=== PATIENT | male | born 1955 | race Caucasian/White ===

== ENCOUNTER 2017-04-04 11:33 | Inpatient (IN) | payer OTHER, BC ==
[~2017-04-04 11:33] MED LIST: ACETAMINOPHEN 1,000 MG/100 ML BTL IV ONE; CELECOXIB 100 MG CAPSULE PO ONE; FAMOTIDINE 20MG TABLET PO ONE; MECLIZINE 25 MG TABLET PO ONE; METOCLOPRAMIDE 10 MG TABLET PO ONE; VANCOMYCIN HCL 1,000 MG in 0.9 % SODIUM CHLORIDE 250ML 250 ML IVPB ONE
[2017-04-04] MEDS ORDERED: VANCOMYCIN HCL 1 GM VIAL IVPB ONE (12:34)
[2017-04-04] MEDS ORDERED: TRANEXAMIC ACID 1,000 MG/10 ML ML IV ONE (12:34)
[2017-04-04] MEDS ORDERED: BUPIVACAINE 0.75% W/EPI MPF 30ML VIAL IVP ONE (12:34)
[2017-04-04] MEDS ORDERED: BUPIVACAINE LIPOSOME 266MG/20ML VIAL IV ONE (12:34)
[2017-04-04 12:48] LABS: ABO GROUP O; ANTIBODY SCREEN NEGATIVE (NEGATIVE); RH TYPE POSITIVE
[2017-04-04] MEDS ORDERED: TRAMADOL HCL 50 MG TABLET PO PRN ×2 (12:54)
[2017-04-04] MEDS ORDERED: ACETAMINOPHEN W/ CODEINE 300MG/30MG TABLET PO PRN ×2 (12:54)
[2017-04-04] MEDS ORDERED: BISACODYL 10 MG SUPP RC PRN (12:54)
[2017-04-04] MEDS ORDERED: HYDROMORPHONE HCL 2 MG/ML VIAL IM PRN (12:54)
[2017-04-04] MEDS ORDERED: NALOXONE 0.4 MG/1 ML VIAL IVP PRN (12:54)
[2017-04-04] MEDS ORDERED: PROMETHAZINE HCL 12.5 MG in 0.9 % SODIUM CHLORIDE 100ML 50 ML IVPB PRN (12:54)
[2017-04-04] MEDS ORDERED: MORPHINE SULFATE 5 MG/ML PFS IVP PRN ×4 (12:54)
[2017-04-04] MEDS ORDERED: HYDROCODONE/APAP 7.5/325MG TABLET PO PRN (12:54)
[2017-04-04] MEDS ORDERED: ZOLPIDEM TARTRATE 5 MG TABLET PO PRN (12:54)
[2017-04-04] MEDS ORDERED: DIPHENHYDRAMINE HCL 25 MG CAPSULE PO PRN (12:54)
[2017-04-04] MEDS ORDERED: ACETAMINOPHEN W/ CODEINE 300MG/60MG TABLET PO PRN ×2 (12:54)
[2017-04-04] MEDS ORDERED: METOCLOPRAMIDE HCL 10 MG/2 ML VIAL IVP PRN (12:54)
[2017-04-04] MEDS ORDERED: ACETAMINOPHEN 325 MG TAB PO PRN (12:54)
[2017-04-04] MEDS ORDERED: KETOROLAC 30 MG/ML VIAL IVP PRN ×2 (12:54)
[2017-04-04] MEDS ORDERED: HYDROCODONE/APAP 5/325MG TABLET PO PRN ×2 (12:54)
[2017-04-04] MEDS ORDERED: HYDROMORPHONE HCL 1 MG/ML SYRINGE IM PRN (12:54)
[2017-04-04] MEDS ORDERED: MAGNESIUM HYDROXIDE 30 ML UDC PO PRN (12:54)
[2017-04-04] MEDS ORDERED: AL HYDROX/MAG HYDROX 30ML UD PO PRN (12:54)
[2017-04-04] MEDS: ONDANSETRON HCL IV 4 MG/2 ML VIAL IVP PRN ×2 (18:18→22:24)
[2017-04-04] MEDS: PATIENT OWN MED: METFORMIN 1000 MG PO SCH (18:45)
[2017-04-04] MEDS: GLIPIZIDE 5 MG PO SCH (18:45)
[2017-04-04] MEDS: DEXTROSE 5 % AND 0.9 % NACL 1,000 ML IV PRN (20:55)
[2017-04-04] MEDS: VANCOMYCIN HCL 1,000 MG in DEXTROSE 5 % IN WATER 250 ML IVPB SCH ×2 (22:09)
[2017-04-04] MEDS: PATIENT OWN MED: ATORVASTATIN 40 MG PO SCH (22:13)
[2017-04-04] MEDS: FERROUS SULFATE 325 MG TAB PO SCH (22:13)
[2017-04-04] MEDS: DOCUSATE SODIUM 100 MG CAPSULE PO SCH (22:13)
[2017-04-04] MEDS: PATIENT OWN MED: FENOFIBRATE 145 MG PO SCH (22:13)
[2017-04-05] MEDS: ONDANSETRON HCL IV 4 MG/2 ML VIAL IVP PRN ×3 (04:58→17:40)
[2017-04-05] MEDS: DEXTROSE 5 % AND 0.9 % NACL 1,000 ML IV PRN ×2 (05:00→17:36)
[2017-04-05 06:49] LABS: HEMATOCRIT 40.2 % (42.0-52.0); HEMOGLOBIN 12.7 gm/dl (14.0-18.0)
--- NOTE | 2017-04-05 07:08 | RADIOLOGY REPORT ---
EXAM: RIGHT HIP, SINGLE VIEW HISTORY: POSTOP. TECHNIQUE: A single portable AP view of the right hip was obtained. Comparison: None. FINDINGS: Status post right hip arthroplasty. Soft tissue gas and swelling is likely postoperative in nature. No gross complicating process. IMPRESSION: RIGHT HIP ARTHROPLASTY CHANGE. NO GROSS COMPLICATING PROCESS. JOB NUMBER: [id number] MTDD
[2017-04-05] MEDS: GLIPIZIDE 5 MG PO SCH ×2 (10:20→17:56)
[2017-04-05] MEDS: PATIENT OWN MED: METFORMIN 1000 MG PO SCH ×2 (10:20→17:57)
[2017-04-05] MEDS: CELECOXIB 100 MG CAPSULE PO SCH (10:22)
[2017-04-05] MEDS: RIVAROXABAN 10 MG TABLET PO SCH (10:22)
[2017-04-05] MEDS: DOCUSATE SODIUM 100 MG CAPSULE PO SCH ×2 (10:22→21:25)
[2017-04-05] MEDS: FERROUS SULFATE 325 MG TAB PO SCH ×2 (10:23→21:25)
[2017-04-05] MEDS: PATIENT OWN MED: LISINOPRIL 10 MG PO SCH (10:28)
[2017-04-05] MEDS: METOPROLOL 25 MG PO SCH (10:28)
[2017-04-05] MEDS: VANCOMYCIN HCL 1,000 MG in DEXTROSE 5 % IN WATER 250 ML IVPB SCH ×2 (10:50)
--- NOTE | 2017-04-05 10:53 | Rehab Evaluation ---
Patient Information - Patient Information Diagnosis: R hip OA Ordered Treatment: PT Evaluate and Treat Status: Initial Evaluation Surgery: Yes Date of Surgery: 04/04/17 Past Medical/Surgical Hx: PAST MEDICAL/SURGICAL HISTORY Past Surgical History left knee surgery open right knee surgery open appy c scopes heart cath x's 2 PMH - Respiratory Hx Respiratory Disorders No PMH - Cardiovascular Hx Cardiovascular Disorders Yes Hx Abnormal EKG Yes Hx Cardiac Catheterization Yes: 2006 neg. and heart cath 03-30-17 neg has clearance from cardio Hx Hypertension Yes: well controlled on meds Exercise Tolerance Poor Comment: due to hip pain PMH - Neuro Hx Neurological Disorders No PMH - GI Hx Gastrointestinal Disorders Yes PMH - Hx Genitourinary Disorders No PMH - Endocrine Hx Endocrine Disorders Yes Hx Diabetes Yes: onset 10 years ago Hx of NIDDM Yes Comment: checks blood sugars sporadically 120'2 FBS 5.8 A1C PMH - Musculoskeletal Hx Musculoskeletal Disorders Yes Hx Arthritis Yes PMH - Psych Hx Psychiatric Problems No PMH - Hematology/Oncology Hx Hematology/Oncology No Disorders Premorbid Status: Detail (The patient was ambulatory without assistive device and indpendent with all mobility.) Social History: Detail (The patient lives with spouse in a one story home with 2 steps without handrails ( wide enough for walker). The patient's bathroom is equipped with a tub/shower combination with no grab bars and an elevated toilet seat. The patient has a wheeled walker and a standard cane.) Precautions: [place], Other (WBAT on th R LE.) - Time With Patient Total Time Spent With Patient (Min): 30 Treatment Procedures: Detail (Initial Evaluation, gait training) Subjective Information - Subjective Information Per Patient (The patient had complaints of R hip pain level 4 using the 0-10 pain scale.) Objective Data - Mental Status Patient Orientation: Oriented x3 - Visual Perception Appears within normal limits for therapeutic activities - ROM Not within normal limits (The patient's L LE is WFL. The patient's R hip is within THR precautions, knee and ankle are WNL.) - Strength/Tone Not within normal limits (The patient's L LE strength is generally 4+ to 5/5, R LE strength was not tested secondary to s/p surgery, however the patient's strength is functional ( ie: able to lift leg off of bed).) - Bed Mobility Independent (The patient was independent with supine to and from sit transfer.) - Transfers Independent (Independent toilet transfer with use of grab bar and sit to and from stand transfer.) - Balance Balance Sitting: Good Balance Standing: Good - Gait Detail (The patient ambulated with wheeled walker WBAT on the R LE a distance of 60 feet x 1 with supervision for safety only.) Therapy Assessment - Therapy Assessment Detail (The patient experienced increased fatigue after ambulation. The patient was independent with bed mobility and transfers and supervision for safety with ambulation. Feel the patient will progress well with mobility, due to the patient's independence with mobility unsure if patient will require subacute rehabilitation.) Patient Education - Patient Education Teaching Topic: Exercise/Activity (The patient's HEP was reviewed and included: ankle pumps, hip abduction sidelying, heel slides, quad sets, hamstring sets and gluteal sets.), Precautions (The patient required verbal cues to recall THR precautions.) Response: Return Demonstration Teaching Method: Demonstration, Handout Teaching Recipient: Patient Barriers To Learning: Age Related Problem List - Problem List Physical Therapy Problem List: Detail (1) Decreased R LE strength as to be expected following surgery 2) Decreased ability to complete sustained physical activity 3) Non ambulatory on stairs) Goals - Goals Physical Therapy Goals: 1) The patient will be independent with assistive devices on level surfaces WBAT on the R LE. 2) The patient will ambulate on stairs with supervision for safety WBAT on the R LE. 3) The patient will be independent in recalling and following THR precautions Prognosis - Prognosis Good Plan - Plan Physical Therapy Plan: PT 1-2 times a day for gait training, transfer training and review of THR precautions until inpatient goals are met.
[2017-04-05] MEDS ORDERED: BUPIVACAINE 0.75% W/EPI MPF 30ML VIAL IVP ONE (11:07)
[2017-04-05] MEDS ORDERED: TRANEXAMIC ACID 1,000 MG/10 ML ML IV ONE (11:07)
[2017-04-05] MEDS ORDERED: VANCOMYCIN HCL 1 GM VIAL IVPB ONE (11:07)
--- NOTE | 2017-04-05 12:57 | Rehab Evaluation ---
Patient Information - Patient Information Diagnosis: R hip OA Ordered Treatment: OT Evaluate and Treat Status: Initial Evaluation Surgery: Yes (right PRASHANT) Date of Surgery: 04/04/17 Past Medical/Surgical Hx: PAST MEDICAL/SURGICAL HISTORY Past Surgical History left knee surgery open right knee surgery open appy c scopes heart cath x's 2 PMH - Respiratory Hx Respiratory Disorders No PMH - Cardiovascular Hx Cardiovascular Disorders Yes Hx Abnormal EKG Yes Hx Cardiac Catheterization Yes: 2006 neg. and heart cath 03-30-17 neg has clearance from cardio Hx Hypertension Yes: well controlled on meds Exercise Tolerance Poor Comment: due to hip pain PMH - Neuro Hx Neurological Disorders No PMH - GI Hx Gastrointestinal Disorders Yes PMH - Hx Genitourinary Disorders No PMH - Endocrine Hx Endocrine Disorders Yes Hx Diabetes Yes: onset 10 years ago Hx of NIDDM Yes Comment: checks blood sugars sporadically 120'2 FBS 5.8 A1C PMH - Musculoskeletal Hx Musculoskeletal Disorders Yes Hx Arthritis Yes PMH - Psych Hx Psychiatric Problems No PMH - Hematology/Oncology Hx Hematology/Oncology No Disorders Premorbid Status: Detail (Patient lives with spouse in a 1 story house with basement (he will be staying on the main floor temporarily). He has 2 steps at the entrance. He has a tub/shower combination, no handrails and he usually stands to shower. He has an elevated toilet, no grab bars. He is generally responsible for laundry as his has difficulty with the basement stairs. He reports they will be "managing" with laundry after discharge. He has a 2 wheeled walker, shake backboard notcher, shoe horn and sock aid.) Social History: Detail (Supportive spouse.) Precautions: [place], Other (WBAT R LE, PRASHANT precautions.) - Time With Patient Total Time Spent With Patient (Min): 50 Treatment Procedures: Detail (OT eval low complexity) Subjective Information - Subjective Information Per Patient, Other (Spouse present for evaluation) Objective Data - Pain Pain Present: Yes (06/25) - Mental Status Patient Orientation: Oriented x3 - Visual Perception Appears within normal limits for therapeutic activities - ROM Within normal limits ([place] UE AROM WNL) - Strength/Tone Within normal limits ([place] UE strength WNL) - Coordination Appears within normal limits for therapeutic activities - Bed Mobility Independent (Ind with supine to sit.) - Transfers Independent (Ind with sit to stand from raised commode, EOB and raised chair.) - Balance Balance Sitting: Good Balance Standing: Good - Sensation Intact - Gait Detail (Pt ambulating in room with 2 wheeled walker Indly.) - ADL's/IADL's Detail (Pt required verbal cues to recall hip precautions. Pt educated re: LE dressing within hip precautions using adaptive equipment. He was able to demonstrate Ind with donning/doffing shorts and socks after verbal instruction, using shake backboard notcher, sock aid and dressing stick. Pt able to don tennis shoe with shoe horn but required min assist for heel. Briefly reviewed meal prep, pt very concerned about this as his will be at work during the day.) Therapy Assessment - Therapy Assessment Detail (Pt requires min assist for LE dressing (shoes) with use of adaptive equipment, he would benefit from additional OT to address safety with IADLs.) Problem List - Problem List Physical Therapy Problem List: Detail (1) Decreased R LE strength as to be expected following surgery 2) Decreased ability to complete sustained physical activity 3) Non ambulatory on stairs) Occupational Therapy Problem List: Detail (1. Decreased Ind with donning tennis shoes. 2. Decreased Ind with modified IADLs.) Goals - Goals Physical Therapy Goals: 1) The patient will be independent with assistive devices on level surfaces WBAT on the R LE. 2) The patient will ambulate on stairs with supervision for safety WBAT on the R LE. 3) The patient will be independent in recalling and following THR precautions Occupational Therapy Goals: 1. Pt will be safe and Ind with LE dressing using adaptive equipment while maintaining PRASHANT precautions. 2. Pt will verbalize modified techniques for IADLs. Plan - Plan Physical Therapy Plan: PT 1-2 times a day for gait training, transfer training and review of THR precautions until inpatient goals are met. Occupational Therapy Plan: OT 1-2 times for LE dressing and IADLs. Pt may benefit from short IP rehab stay to ensure safety and Ind with return home. Thank you for this referral.
[2017-04-05] MEDS: HYDROCODONE/APAP 7.5/325MG TABLET PO PRN (14:22)
[2017-04-05] MEDS ORDERED: PROPOFOL 10 MG/ML VIAL IV ONE (14:34)
[2017-04-05] MEDS ORDERED: EPHEDRINE SULFATE 50 MG/ML ML IV ONE (14:34)
[2017-04-05] MEDS ORDERED: MIDAZOLAM HCL 2MG/2ML VIAL IV ONE (14:34)
[2017-04-05] MEDS ORDERED: FENTANYL PF 100MCG/2ML VIAL IV ONE (14:34)
[2017-04-05] MEDS ORDERED: HYDROMORPHONE HCL 2 MG/ML VIAL IV ONE (14:34)
[2017-04-05] MEDS ORDERED: DIPHENHYDRAMINE HCL IV 50 MG/ML VIAL IVP ONE (14:34)
[2017-04-05] MEDS ORDERED: LIDOCAINE 2% MDV (20MG/ML) 20ML VIAL IV ONE (14:34)
--- NOTE | 2017-04-05 16:46 | Physical Therapy Tx Note ---
Physical Therapy Tx Note - Treatment Note Tolerated: Good (Patient doing quite well this afternoon. Sitting up in chair and very willing to try stairs and getting into bed on same side that he does at home. Sitting in chair, helped patient put on shorts at knees and patient able to stand and pull them up. Patient able to perform exercises in bed and got into bed independently as well.) Total Time Spent With Patient: 30 Physical Therapy Tx Note: Detail (Patient sitting in chair, nurse detached IV then patient sit to stand independently with FWW. Able to walk with FWW and CGA about 75 feet to stairs and walked down three steps with verbal cues for using correct leg, held rail and folded walker and able to descend safely then turned around using walker and ambulated back up three steps with folded walker and rail using correct leg. Ambulated back to room with only brief rest near room. Patient used bathroom independently then able to move to side of bed that he will use at home and sat on edge of bed with good technique. Patient then was able to scoot back onto bed and pivot into bed with only slight need for assist with hands to get right leg into bed. Patient performed exercises for right hip with good tolerance and technique. Patient also able to repeat hip precautions.) Physical Therapy Problem List: Detail (1) Decreased R LE strength as to be expected following surgery 2) Decreased ability to complete sustained physical activity 3) Non ambulatory on stairs) Physical Therapy Goals: 1) The patient will be independent with assistive devices on level surfaces WBAT on the R LE. 2) The patient will ambulate on stairs with supervision for safety WBAT on the R LE. 3) The patient will be independent in recalling and following THR precautions Prognosis: Good (Patient doing well but wants to go to a rehab facility so will still be here in am and would like to work with PT again for increase in endurance and practice for mobility. He did perform stairs well and exercises but needs a little work on bed mobility.) Physical Therapy Plan: PT 1-2 times a day for gait training, transfer training and review of THR precautions until inpatient goals are met.
[2017-04-05] MEDS: PATIENT OWN MED: FENOFIBRATE 145 MG PO SCH (21:26)
[2017-04-05] MEDS: PATIENT OWN MED: ATORVASTATIN 40 MG PO SCH (21:26)
[2017-04-06] MEDS: HYDROCODONE/APAP 7.5/325MG TABLET PO PRN ×3 (06:40→17:29)
[2017-04-06 06:58] LABS: HEMATOCRIT 36.3 % (42.0-52.0); HEMOGLOBIN 11.2 gm/dl (14.0-18.0)
--- NOTE | 2017-04-06 07:15 | RADIOLOGY REPORT ---
EXAM: PORTABLE CHEST HISTORY: DIFFICULTY IN BREATHING. TECHNIQUE: AP upright view of the chest was performed. FINDINGS: The heart size is normal. No pulmonary vascular congestion. No infiltrate or pleural effusion. The osseous structures are normal. IMPRESSION: NO ACUTE DISEASE PROCESS. JOB NUMBER: [id number] MTDD
[2017-04-06] MEDS: CELECOXIB 100 MG CAPSULE PO SCH (10:54)
[2017-04-06] MEDS: DOCUSATE SODIUM 100 MG CAPSULE PO SCH (10:54)
[2017-04-06] MEDS: RIVAROXABAN 10 MG TABLET PO SCH (10:54)
[2017-04-06] MEDS: FERROUS SULFATE 325 MG TAB PO SCH (10:54)
[2017-04-06] MEDS: PATIENT OWN MED: LISINOPRIL 10 MG PO SCH (10:58)
[2017-04-06] MEDS: GLIPIZIDE 5 MG PO SCH ×2 (10:58→17:30)
[2017-04-06] MEDS: PATIENT OWN MED: METFORMIN 1000 MG PO SCH ×2 (10:58→17:30)
[2017-04-06] MEDS: METOPROLOL 25 MG PO SCH (10:58)
--- NOTE | 2017-04-06 11:46 | Physical Therapy Tx Note ---
Physical Therapy Tx Note - Treatment Note Tolerated: No complications (Pt. was apprehensive about returning to home environment. Pt. reported 5/10 pain at start of tx. Pt. reported he has been communicating with [facility] and may stay at home following inpatient PT and receive home care.) Physical Therapy Tx Note: Detail (Pt. ambulated to and from bathroom twice during tx. He was independent with transfers and bathroom use. Pt. verbalized good understanding of his HEP. Pt. was instructed to perform a car transfer via shower chair demonstration. Pt. appropriately performed the transfer to and from shower chair with belt to assist his operative LE. Pt. demonstrated trunk extension while advancing his operative LE to avoid breaking hip flexion precaution of 90 degrees. Pt. was independent with ambulation using front wheeled walker. Pt. verbalized understanding of his hip precautions. Pt. completed his bed mobility and stair goals last tx session per last PT report.) Physical Therapy Problem List: Detail Physical Therapy Goals: Pt. has met all inpatient PT goals. Prognosis: Good (D/C pt. from inpatient PT.) Physical Therapy Plan: D/C pt. from inpatient PT.
--- NOTE | 2017-04-06 12:48 | Occupational Therapy Tx Note ---
Occupational Therapy Tx Note - Treatment Note Tolerated: Good Total Time Spent With Patient: 15 (ADL) Occupational Therapy Treatment Note: Detail (S: Pt up in chair, feeling ok about dressing with equipment. O: Sit to stand and amb to bathroom with 2 wheeled walker Indly. Pt completed partial sponge bath at sink with assist from spouse. Pt donned shirt and shorts Indly with electronics test engineer. Briefly reviewed tub transfer and car transfer techniques, pt verbalized understanding. PT will address at next visit this morning. Pt feels he will not be wearing tennis shoes at this time therefore this is not an immediate concern. A: Pt is safe and Ind with LE dressing using adaptive equipment while maintaining PRASHANT precautions.) Occupational Therapy Problem List: Detail (1. Decreased Ind with donning tennis shoes. 2. Decreased Ind with modified IADLs.) Occupational Therapy Goals: 1. Pt will be safe and Ind with LE dressing using adaptive equipment while maintaining PRASHANT precautions. 2. Pt will verbalize modified techniques for IADLs. Prognosis: Good Occupational Therapy Plan: OT 1-2 times for LE dressing and IADLs. Pt may benefit from short IP rehab stay to ensure safety and Ind with return home. Thank you for this referral.
--- NOTE | 2017-04-06 13:10 | Operative Note ---
DATE OF SURGERY: 04/04/2017 PREOPERATIVE DIAGNOSIS: End-stage right hip arthrosis. POSTOPERATIVE DIAGNOSIS: End-stage right hip arthrosis. OPERATION: Right total hip arthroplasty. Surgeon: Didier Ferrari MD Anesthesia: Spinal, RADHA Zhu. COMPLICATIONS: None. ESTIMATED BLOOD LOSS: 200 mL OPERATIVE FINDINGS: Severe [id number] hip arthrosis. COMPONENTS PLACED: A 2 g vancomycin Humphries [employer] Nephew Synergy cemented total hip arthroplasty system, size 16 femoral stem high offset with a size 58 mm Reflection 3-hole acetabular shell with 2 screw caps, centrally-threaded screw cap, and a 35-degree hooded highly cross-linked polyethylene liner, an Oxinium 32 plus 0 mm femoral head component. Indication: This is a 61-year-old morbidly obese male who has had persistent pain and dysfunction in his hip for several years. He has failed nonoperative treatment. He has been trying to lose some weight and I recommended he continue to do so. He is at higher risk for infection and perioperative complications because of his weight but he wanted to proceed anyway. He is not able to exercise due to his pain in his hip. I explained all risks and benefits in detail for the diagnosis and procedure including but not limited to infection, nerve injury, vessel injury, persistent pain, stiffness, numbness, tingling in his hip, limb length discrepancy, periprosthetic fracture, need for resection arthroplasty if components are infected or loosen, blood clot, and need for further procedures, need for anticoagulation to prevent blood clots and risks associated with these medications. All his questions were answered. The course was outlined. He agreed to proceed. PROCEDURE: The patient brought to the OR and placed in the left lateral decubitus position. The right hip and lower extremity prepped and draped in sterile fashion. Prepped using Chloraprep and draped. A general timeout was performed. Next, a posterior approach was marked over the hip. It was infiltrated with 0.5% Marcaine with epinephrine. Skin and subcutaneous dissected down to gluteal fascia. Split longitudinally. The subgluteal plane was bluntly dissected. Self-retainer was brought in. Identified the sciatic nerve, carefully protected at all times. Took out the short external rotators, tagged them with #2 Vicryl. We incised and released the capsule proximally and distally and dislocated the femoral head without difficulty. The femoral head was very deformed, massive osteophytes, oblong deformed shape with no cartilage. Next, we resected the femoral head about 1.5 cm over the lesser trochanter and then inserted the box osteotome. We then started reaming by 1 mm increments to a size 11 to a size 17. We stopped there. We broached using a 16 stem. We broached a 15 calcar plane, and then a 16 calcar plane. We had a good fit so we stopped there. Attention to the acetabulum. Placed inferior acetabular retractor, released the capsule anteriorly, superiorly and placed a femoral retractor there, had good exposure. We resected some of the capsule and labrum. The large femoral head was over 50 mm, large acetabulum and then we started reaming in 1 mm increments and 45 degrees inclination and 20 degrees anteversion until we reamed and medialized and reamed up to a size 57 mm reamer. This had good peripheral and central fit now. There were several cysts we curetted out. Next, we irrigated copiously. Changed gloves. We bone grafted the cyst. We trialed the trial size 58 mm shell and it fit nicely again in 45 degrees inclination and 20 degrees anteversion. Next, we then impacted down the real acetabular component with a helicopter guide off the posterior shoulder for 45 degrees inclination and 20 degrees anteversion, tapped it down and verified it was flush medially. We stopped there. Next, we drilled the posterior central superior quadrant screw hole and inserted a 45 mm screw. We had a good purchase bite. Next, we placed a trial liner and did a trial reduction. Best combination range of motion, stability, and leg lengths was with a 32 plus 0 mm femoral head component which allowed for adequate thickness of the poly, about 9 mm in this very large male which I did not want to compromise the thickness there and put in a larger head even though it gives more stability but also more volumetric wear and less poly thickness. Allowed for flexion to 90 and internal rotation to 80 before the hip dislocated. Symmetric leg lengths and stability with extension and external rotation. These are the sizes we used. Next, we removed all trial components, irrigated the acetabular shell, placed a centrally-threaded screw cap and 2 other screw caps, placed the 35-degree highly cross-linked polyethylene liner with the portillo in the posterior supine quadrant. Impacted that down and verified it was interlocked. We placed cement and restricted distally in the femoral canal with irrigating and injected the cement through a suction catheter and then impacted down the real femoral stem until the collar was flush in 15 degrees of anteversion and held it until the cement hardened. We cleaned and dried the trunnion and packed down the real femoral head component, reduced the hip and found that the range of motion to be the same. We irrigated copiously. We repaired the short external rotators to the abductors using the #2 Vicryl in a krackow interlocked stitch configuration and then irrigated again, repaired the gluteal fascia with running #2 Quill suture. Irrigated again, closed the skin deep with 2-0 Vicryl and approximated the skin edges with zipline. The patient tolerated the procedure well. No intraoperative complications. All sponge, needle, and blade counts correct. Injected the previously deep abductors, short external rotators, deep capsule, and periosteum and gluteal work down from deep to superficial with 0.5% Marcaine with epinephrine, 2 g tranexamic acid, and Exparel mixture. The patient tolerated the procedure well. No intraoperative complications. All sponge, needle, and blade counts correct. Recovery room stable. Neurovascularly intact. She is discharged to the floor with likely discharge home tomorrow. Home nursing and PT with [facility]. Follow up in 2 weeks. ES
== END 2017-04-06 18:30 | disposition home health service (06) | DRG 470 ==
LOC: MEDSURG 11:33
PROVIDERS: ADMIT Orthopaedic Surgery; ATTEND Orthopaedic Surgery
PROC: 0SR9069 Replacement of Right Hip Joint with Oxidized Zirconium on Polyethylene Synthetic Substitute, Cemented, Open Approach (ICD-10-PCS; principal; 2017-04-04 14:00)
DX: M16.11 Unilateral primary osteoarthritis, right hip (principal); E11.9 Type 2 diabetes mellitus without complications; Z79.84 Long term (current) use of oral hypoglycemic drugs; I10 Essential (primary) hypertension; E78.00 Pure hypercholesterolemia, unspecified
CPT/HCPCS: 36416; 71010; 82948; 85014; 85018; 86850; 86900; 86901; 94760; 97110; 97116; 97165; 97530; 97535; J1200; J2405; J3490; J7042; J7050; J7060